=== PATIENT | male | born 1965 | race Caucasian/White ===

== ENCOUNTER 2016-03-15 16:57 | Emergency (ER) | payer BC, OTHER ==
[2016-03-15] MEDS ORDERED: DIPHENHYDRAMINE 50 MG/ML VIAL ONE (19:08)
[2016-03-15] MEDS ORDERED: KETOROLAC 30 MG/ML VIAL ONE (19:08)
[2016-03-15] MEDS ORDERED: METOCLOPRAMIDE 10 MG/2 ML VIAL ONE (19:08)
[2016-03-15] MEDS ORDERED: SODIUM CHLORIDE 0.9% 500 ML IV ONE (19:09)
== END 2016-03-15 20:44 | disposition home or self-care (01) ==
LOC: ER 16:57
DX: R51 Headache (principal); Z87.891 Personal history of nicotine dependence
CPT/HCPCS: 70450; 96361; 96374; 96375